=== PATIENT | female | born 1965 | race Caucasian/White ===

== ENCOUNTER 2016-08-09 11:30 | Emergency (ER) | payer OTHER, SELFPAY ==
--- NOTE | 2016-08-10 12:40 | ER ---
ADMIT: 08/09/2016 RM/LOC: ER [facility] MR#: [id number] [id number] [place], [place] [id number] JAROCHO MOCK [address] [address] Emergency Room Report SEX: F AGE: 50 : 1965 DATE: 08/09/2016 ADDENDUM: A 50-year-old female coming in with back pain. Evidently, she had fallen out of a dentist chair like earlier in the week, continues to have pain. It is of interest to note, she does have a history of chronic pain syndrome as well as back pain in the past. She has an MRI which showed nonspecific findings about 6 years ago. At this time, the plain film, there is nothing acute here. She has no neurological deficits. We did give her 10 of morphine IM. I gave her 20 of Decadron IM and then put her on prednisone 20 b.i.d. for 4 days, starting tomorrow and then put her on tramadol 50 q.6h p.r.n. pain, #30. She should follow up with her doctor. The prednisone will raise her blood sugars for a while but that should be short term only. Kirk Todd MD/ luciano JOB #: [id number] CC: Kirk Todd MD, Attending Physician Manny Monsivais, Family Physician
== END 2016-08-09 15:40 | disposition home or self-care (01) ==
LOC: ER 11:30
DX: G89.29 Other chronic pain (principal); M54.5 Low back pain; E11.9 Type 2 diabetes mellitus without complications; Z86.73 Personal history of transient ischemic attack (TIA), and cerebral infarction without residual deficits; Z79.899 Other long term (current) drug therapy; Z88.0 Allergy status to penicillin

== ENCOUNTER 2016-11-25 21:51 | Emergency (ER) | payer OTHER ==
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
== END 2016-11-26 00:30 | disposition home or self-care (01) ==
LOC: ER 21:51
DX: S10.93XA Contusion of unspecified part of neck, initial encounter (principal); S20.219A Contusion of unspecified front wall of thorax, initial encounter; E11.9 Type 2 diabetes mellitus without complications; I10 Essential (primary) hypertension; Z86.718 Personal history of other venous thrombosis and embolism; Z90.89 Acquired absence of other organs; Z79.84 Long term (current) use of oral hypoglycemic drugs; Z88.0 Allergy status to penicillin; V43.02XA Car driver injured in collision with other type car in nontraffic accident, initial encounter; Y92.488 Other paved roadways as the place of occurrence of the external cause; Z79.899 Other long term (current) drug therapy